=== PATIENT | female | born 1950 ===

== ENCOUNTER 2023-01-31 16:04 | Inpatient (IN) | payer OTHER ==
[~2023-01-31] VITALS: Ht 160 cm; Wt 86.2 kg
[2023-02-01] MEDS ORDERED: SIMVAST PO (13:51)
[2023-02-01] MEDS ORDERED: SYNTHROID50 MCG PO (13:51)
[2023-02-01] MEDS ORDERED: ZOLOFT50 MG PO (13:51)
[2023-02-01] MEDS ORDERED: WELLBUTR PO (13:52)
[2023-02-01] MEDS ORDERED: WELLBUT PO (13:52)
[2023-02-01] MEDS ORDERED: METFOR PO (13:53)
[2023-02-01] MEDS ORDERED: ARICEPT5 MG PO (13:53)
[2023-02-01] MEDS ORDERED: TESSALON PO (13:54)
[2023-02-01] MEDS ORDERED: TRAMAD PO (13:55)
[2023-02-05] MEDS ORDERED: OLANZAPINE5 MG (10:52)
[2023-02-05] MEDS ORDERED: SIMVASTATIN20 MG (10:52)
[2023-02-05] MEDS ORDERED: METFORMIN HCL750 MG (10:53)
[2023-02-05] MEDS ORDERED: WELLBUTRIN SR100 MG (10:53)
[2023-02-05] MEDS ORDERED: TRAMADOL HCL50 MG (10:54)
[2023-02-05] MEDS ORDERED: BENZONATATE200 M1 (10:57)
[2023-02-05] MEDS ORDERED: BENZONATATE100 MG (10:58)
[2023-02-05] MEDS ORDERED: AZELASTINE205.5 MCG/ (11:00)
[2023-02-06] MEDS ORDERED: FLONASE16 GM (11:02)
[2023-02-06] MEDS ORDERED: AZELASTINE137 MCG/0. (11:02)
[2023-02-13] MEDS ORDERED: BENZONATATE100 MG PO (08:22)
[2023-02-13] MEDS ORDERED: TUSSIN MUC100 MG/5 M PO (08:22)
[2023-02-13] MEDS ORDERED: INTESTINEX680 M1 PO (08:23)
[2023-02-13] MEDS ORDERED: LEVSIN/SL0.125 MG SL (08:23)
== END 2023-02-13 14:49 | disposition home or self-care (01) | DRG 329 ==
LOC: SURG 02-05 09:15 → O/R 02-05 10:16 → SURH 02-05 10:40 → SURG 02-05 12:45
PROVIDERS: ADMIT Surgery; ATTEND Surgery
PROC: 07BB4ZZ Excision of Mesenteric Lymphatic, Percutaneous Endoscopic Approach (ICD-10-PCS; 2023-02-05)
PROC: 4A12X4Z Monitoring of Cardiac Electrical Activity, External Approach (ICD-10-PCS; 2023-02-05)
PROC: 5A09457 Assistance with Respiratory Ventilation, 24-96 Consecutive Hours, Continuous Positive Airway Pressure (ICD-10-PCS; 2023-02-05)
PROC: 0DTF4ZZ Resection of Right Large Intestine, Percutaneous Endoscopic Approach (ICD-10-PCS; principal; 2023-02-05 12:45)
DX: D12.0 Benign neoplasm of cecum (principal); J95.821 Acute postprocedural respiratory failure; I50.30 Unspecified diastolic (congestive) heart failure; K57.30 Diverticulosis of large intestine without perforation or abscess without bleeding; E03.9 Hypothyroidism, unspecified; E11.8 Type 2 diabetes mellitus with unspecified complications; Z79.4 Long term (current) use of insulin; E66.9 Obesity, unspecified; I11.0 Hypertensive heart disease with heart failure